=== PATIENT | female | born 1980 | race Caucasian/White ===

== ENCOUNTER → 2021-12-23 | Outpatient (CLI) | payer BC ==
[~2021-12-23] MED LIST: ELDERBERRY-VIT1 EACH PO; HEATHER0.35 MG PO; HYDROCODONE-AC1 EACH PO; IBUPROFEN600 MG PO; LORATADINE10 MG PO; METOPROLOL TART25 MG PO; VITAMIN B12 PO; VITAMIN D PO
[2021-12-23 10:17] LABS: HEMOGLOBIN 13.1 gm/dl (12.3-15.3); RED BLOOD COUNT 4.72 M/UL (4.00-5.10); WHITE BLOOD COUNT 7.5 K/UL (4.5-11.0)
[2021-12-23 10:38] LABS: BUN/CREATININE RATIO 17 (0-10)
== END ==
LOC: OPSV2 08:52
PROVIDERS: Obstetrics & Gynecology
DX: Z01.812 Encounter for preprocedural laboratory examination (principal); N93.9 Abnormal uterine and vaginal bleeding, unspecified
CPT/HCPCS: 36415; 80053; 81001; 85025

== ENCOUNTER → 2021-12-26 | Day surgery (SDC) | payer BC | END | disposition home or self-care (01) | LOC: OR 06:27 | DX: N84.0 Polyp of corpus uteri (principal); N92.0 Excessive and frequent menstruation with regular cycle; I10 Essential (primary) hypertension; E78.2 Mixed hyperlipidemia; N80.0 Endometriosis of uterus; E66.9 Obesity, unspecified; Z68.34 Body mass index [BMI] 34.0-34.9, adult; Z20.822 Contact with and (suspected) exposure to COVID-19; Z87.891 Personal history of nicotine dependence | CPT/HCPCS: 84703; J1100; J1170; J2001; J2250; J2405; J2704; J3010; J7030; J7120 ==